=== PATIENT | male | born 1960 | race African-American/Black ===

== ENCOUNTER 2017-06-25 07:13 | Observation (INO) | payer OTHER ==
[~2017-06-25] VITALS: Ht 190.5 cm; Wt 68.9 kg
[2017-06-25] MEDS ORDERED: SOD CHLORIDE 0.9% 1,000 ML IV STA ×2 (07:35→09:25)
[2017-06-25 08:01] LABS: BASOPHIL # 0.1 10^3/ul (0.0-0.1); BASOPHILS % 0.6 % (0.0-2.0); EOSINOPHILS # 0.1 10^3/ul (0.0-0.5); EOSINOPHILS % 0.6 % (0.0-7.0); HEMATOCRIT 36.1 % (42.0-52.0); LYMPHOCYTES # 1.5 10^3/ul (0.8-2.9); LYMPHOCYTES % 15.2 % (15.0-51.0); MEAN CORPUSCULAR HEMOGLOBIN 31.6 pg (29.0-33.0); MEAN CORPUSCULAR HGB CONC 33.2 g/dl (32.0-37.0); MEAN PLATELET VOLUME 10.9 fl (7.4-10.4); MONOCYTE # 0.8 10^3/ul (0.3-0.9); MONOCYTES % 8.2 % (0.0-11.0); NEUTROPHIL # 7.2 10^3/ul (1.6-7.5); NEUTROPHILS % 74.5 % (39.0-77.0); PLATELET COUNT 120 10^3/UL (140-415); POSITIVE DIFF @See below; RED CELL DISTRIBUTION WIDTH 12.6 % (11.5-14.5); WHITE BLOOD COUNT 9.6 10^3/ul (4.8-10.8)
[2017-06-25 08:16] LABS: PROTIME 13.2 Sec (12.2-14.2)
[2017-06-25 08:17] LABS: PARTIAL THROMBOPLASTIN TIME 26.2 Sec (25.0-35.0)
[2017-06-25 08:18] LABS: ANION GAP 24 (8-16); BLOOD UREA NITROGEN 33 mg/dl (7-20); CARBON DIOXIDE 20 mmol/L (21-31); CHLORIDE 101 mmol/L (97-110); GLUCOSE 191 mg/dl (70-220); POTASSIUM 3.4 mmol/L (3.5-5.1); SODIUM 142 mmol/L (135-144)
[2017-06-25 08:24] LABS: VALPROATE < 10 ug/ml (50-100)
[2017-06-25] MEDS ORDERED: VALPROATE INJ 1,000 MG in DEXTROSE 5% 100 ML IVPB ONE (08:30)
--- NOTE | 2017-06-25 08:30 | RADRPT ---
PROCEDURE: XR Chest. CLINICAL INDICATION: Seizure TECHNIQUE: Single frontal view of the chest was obtained COMPARISON: None FINDINGS: The heart and mediastinum are within normal limits. The lungs are clear. There is no pleural effusion or pneumothorax. RPTAT: AA IMPRESSION: No acute disease. .Rodrigue Vaz MD, Date Time Electronically viewed and signed by .Rodrigue Vaz MD, on 06/25/2017 08:30 .S/
[2017-06-25 08:32] LABS: TROPONIN-I 0.068 ng/ml (0.00-0.12)
--- NOTE | 2017-06-25 08:39 | RADRPT ---
PROCEDURE: CT Brain without contrast. CLINICAL INDICATION: Seizures. History of CVA. TECHNIQUE: A CT of the brain was performed on a multidetector CT scanner utilizing axial sections from the skull base through the vertex without contrast. Images were reviewed on a high-resolution [employer] workstation. Exam CTDI = 44.03 mGy and the DLP = 720.23 mGy-cm. One or the following dose reduction techniques were used: -Automated exposure control. -Adjustment of the mA and/or KV according to patient's size. -Use of iterative reconstruction technique COMPARISON: None available FINDINGS: Mild diffuse cerebral and cerebellar atrophy is present. There is proportionate dilatation of the v entricular system and sulci in a symmetric fashion. There is prominence of the extraaxial spaces sec ondary to atrophy. There is no evidence of intracranial hemorrhage, mass effect or midline shift. N o abnormal intra-axial or extra-axial fluid collections are seen. The density of the brain is analilia l and the garvey/white matter differentiation is well preserved. Mild patchy diffuse deep white matte r microangiopathic ischemic change is seen. There is ex vacuo dual there is encephalomalacia in the left hemisphere in the deep white matter of the centrum [place], basal ganglia and left tem poral lobe with associated ex vacuo dilatation of the left lateral ventricle. This may be from a rem ote left MCA infarction. 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 A component of this is a small area of hypodensity in the right caudate nucleus with a small amount of a surrounding hyperdensity. There is a tiny punctate hyperdensity in the posterior l imb of the right internal capsule. There is a small remote lacunar infarction in the right thalamus. There is a wedge-shaped area of encephalomalacia in the right cerebellar hemisphere. Paranasal sinu ses and mastoid air cells appear aerated.. Vascular calcifications are identified. IMPRESSION: 1. Irregular hypodense areas in the centrum [place] on the left with left basal ganglia hy podensity and left temporal lobe hypodensity with ex vacuo dilatation of the left lateral ventricle indicative of remote left MCA infarction and possible postoperative change. 2. Small remote lacunar infarction in the right thalamus and right cerebellar hemisphere. 3. Small hypodense area in the right caudate nucleus with this subtle area of slight increased atte nuation along the margin with a second tiny punctate hyperdensity in the posterior limb of the right internal capsule. This is of uncertain significance. Consider MRI in further evaluation. 4. Age-related volume loss and small vessel ischemic changes. 5. Intracranial atherosclerosis. Note: A call report was made to Mayte Duke on 06/25/2017 8:37:37 AM. RPTAT: [facility] Physician Nick Date Time Electronically viewed and signed by Garrett White Physician on 06/25/2017 08:39 /
[2017-06-25 09:03] LABS: ADD UMIC YES; UR ASCORBIC ACID NEGATIVE (NEGATIVE); UR BILIRUBIN (Dip) NEGATIVE (NEGATIVE); UR BLOOD (Dip) 1+ mg/dL (NEGATIVE); UR CLARITY CLEAR (CLEAR); UR COLOR YELLOW (YELLOW); UR GLUCOSE (Dip) NEGATIVE (NEGATIVE); UR KETONES (Dip) NEGATIVE (NEGATIVE); UR LEUKOCYTE ESTERASE (Dip) TRACE Leu/ul (NEGATIVE); UR MUCUS FEW /HPF (NONE SEEN); UR NITRITE (Dip) NEGATIVE (NEGATIVE); UR RBC 3 /HPF (0-5); UR SPECIFIC GRAVITY (Dip) 1.014 (1.003-1.030); UR TOTAL PROTEIN (Dip) 3+ mg/dl (NEGATIVE); UR UROBILINOGEN (Dip) 1+ mg/dL (NEGATIVE)
[2017-06-25 09:28] VITALS: TEMP 98.8
--- NOTE | 2017-06-25 09:46 | ERD ---
ER Documentation Chief Complaint Chief Complaint seizure while at facility with no signs of trauma. aloc on arrival. HPI 56-year-old male with chronic encephalopathy with a history of seizure disorder , hypertension brought in by ambulance for seizures at his facility. Reportedly the patient is on hospice. Patient is unable to provide a history. She has had one seizure at his facility. When ambulance arrived, he was not seizing. When they put him into the ambulance, he started having a seizure again. He was medicated for this and the seizure resolved. ROS Unable to obtain given the patient's encephalopathy Medications Home Meds Unable to Obtain Active Prescriptions or Reported Meds Allergies Allergies: Coded Allergies: Unknown: Unable to obtain (Unverified , 06/25/17) PMhx/Soc History of Surgery: Yes History of Surgery: No Anesthesia Reaction: No Hx Neurological Disorder: Yes (History of CVA with craniectomy, seizure disorder) Hx Respiratory Disorders: No Hx Cardiac Disorders: Yes (Hypertension) Hx Psychiatric Problems: Yes Hx Miscellaneous Medical Probl: No Smoking Status: Unknown if ever smoked FmHx Family History: other (unable to obtain) Physical Exam Vitals Vital Signs Date Time Temp Pulse Resp B/P Pulse Ox O2 Delivery O2 Flow Rate FiO2 06/25/17 11:24 108 20 104/63 99 Room Air 06/25/17 09:28 98.8 102 21 107/69 98 Room Air 2.0 Nasal Cannula 06/25/17 07:29 98.8 130 22 139/98 98 Physical Exam Const: laying in gurney, unresponsive, no apparent distress, nontoxic Head: Atraumatic Eyes: Normal Conjunctiva, PERRLA ENT: Normal External Ears, Nose and Mouth. Dry mucous membranes Neck: No swelling, full passive ROM Resp: Clear to auscultation bilaterally, but shallow respirations on exam , so exam limited Cardio: tachycardic, regular rhythm, no murmurs Abd: Ex lap scar noted. Soft, non distended. Normal bowel sounds Skin: No petechiae or rashes Back: no trauma Ext: No cyanosis, or edema Neur: Somnolent, arousable, does not track with eyes, withdraws to pain on left side, contractures of RUE and minimal response to paniful stimuli in RLE with + Babinski. Result Diagram: 06/25/1745 06/25/17744 Results 24 hrs Laboratory Tests Test 06/25/17 07:45 06/25/17 08:01 06/25/17 08:45 White Blood Count 9.610^3/ul Red Blood Count 3.8010^6/ul Hemoglobin 12.0g/dl Hematocrit 36.1% Mean Corpuscular Volume 95.0fl Mean Corpuscular Hemoglobin 31.6pg Mean Corpuscular Hemoglobin Concent 33.2g/dl Red Cell Distribution Width 12.6% Platelet Count 96572^3/UL Mean Platelet Volume 10.9fl Neutrophils % 74.5% Lymphocytes % 15.2% Monocytes % 8.2% Eosinophils % 0.6% Basophils % 0.6% Nucleated Red Blood Cells % 0.0/100WBC Neutrophils # 7.210^3/ul Lymphocytes # 1.510^3/ul Monocytes # 0.810^3/ul Eosinophils # 0.110^3/ul Basophils # 0.110^3/ul Nucleated Red Blood Cells # 0.010^3/ul Prothrombin Time 13.2Sec Prothrombin Time Ratio 1.0 INR International Normalized Ratio 1.00 Activated Partial Thromboplast Time 26.2Sec Sodium Level 142mmol/L Potassium Level 3.4mmol/L Chloride Level 101mmol/L Carbon Dioxide Level 20mmol/L Anion Gap 24 Blood Urea Nitrogen 33mg/dl Creatinine 2.40mg/dl Glucose Level 191mg/dl Calcium Level 9.0mg/dl Troponin I 0.068ng/ml Valproic Acid (Depakene) Level < 10ug/ml Bedside Glucose 154mg/dL Urine Color YELLOW Urine Clarity CLEAR Urine pH 6.0 Urine Specific [place] 1.014 Urine Ketones NEGATIVEmg/dL Urine Nitrite NEGATIVEmg/dL Urine Bilirubin NEGATIVEmg/dL Urine Urobilinogen 1+mg/dL Urine Leukocyte Esterase TRACELeu/ul Urine Microscopic RBC 3/HPF Urine Microscopic WBC 11/HPF Urine Mucus FEW/HPF Urine Hemoglobin 1+mg/dL Urine Glucose NEGATIVEmg/dL Urine Total Protein 3+mg/dl Current Medications Medications (Trade) Dose Ordered Sig/Bruno Route PRN Reason Start Time Stop Time Status Last Admin Dose Admin Sodium Chloride 1,000 ml @ 1,000 mls/hr Q1H STAT IV 06/25/17 07:35 06/25/17 08:34 DC 06/25/17 07:35 Valproate Sodium 1000 mg/Dextrose 110 ml @ 110 mls/hr ONCE ONCE IVPB 06/25/17 08:30 06/25/17 09:29 DC 06/25/17 08:59 Sodium Chloride (NS) 1,000 ml @ 1,000 mls/hr Q1H STAT IV 06/25/17 09:25 06/25/17 10:24 DC 06/25/17 11:40 Labetalol HCl (Labetalol) 20 mg ONCE ONCE IV 06/25/17 14:00 06/25/17 14:01 Procedures/MDM Labs CBC: no anemia or evidence of infection, thrombocytopenia CMP: Acute versus chronic kidney disease with elevated BUN and creatinine, mild hypokalemia. Troponin within normal limits Valproate level low, subtherapeutic UA: no definite evidence of infection, urine culture sent and pending EKG #1: Rate/Rhythm: Sinus Tachycardia 132 QRS, ST, T-waves: Specific ST/T-wave abnormality, no changes consistent w/ acute ischemia Impression: Sinus tachycardia, no evidence of ischemia or arrhythmia EKG #2: Rate/Rhythm: Sinus Tachycardia 114 QRS, ST, T-waves: Specific ST/T-wave abnormality, No changes consistent w/ acute ischemia Impression: Sinus tachycardia, no evidence of ischemia or arrhythmia Imaging CT head IMPRESSION: 1. Irregular hypodense areas in the centrum [place] on the left with left basal ganglia hypodensity and left temporal lobe hypodensity with ex vacuo dilatation of the left lateral ventricle indicative of remote left MCA infarction and possible postoperative change. 2. Small remote lacunar infarction in the right thalamus and right cerebellar hemisphere. 3. Small hypodense area in the right caudate nucleus with this subtle area of slight increased attenuation along the margin with a second tiny punctate hyperdensity in the posterior limb of the right internal capsule. This is of uncertain significance. Consider MRI in further evaluation. 4. Age-related volume loss and small vessel ischemic changes. 5. Intracranial atherosclerosis. Note: A call report was made to Olaf Duke on 06/25/2017 8:37:37 AM. Garrett White, Physician Date Time Electronically viewed and signed by Garrett White Physician on 06/25/2017 08: 39 Chest x-ray IMPRESSION: No acute disease. .Rodrigue Vaz MD, Date Time Electronically viewed and signed by .Rodrigue Vaz MD, on 06/25/2017 08: 30 MDM Patient is presenting with 2 seizures prior to arrival. Vitals are notable for tachycardia here. He appears dehydrated on my exam. Labs are consistent with acute versus chronic kidney disease, thrombocytopenia, without evidence of UTI. His valproate level was low, not therapeutic. A 1 g IV dose of valproic acid was given. Patient was placed on the monitors. He had no further seizure-like activity. His tachycardia improved with 2 L of IV fluids. At this time I have a low suspicion for sepsis. I suspect this vital sign abnormalities are likely due to dehydration. Also noted to have a prolonged QTC on his EKG, of unknown chronicity. I do not believe the patient is stable for discharge back to his facility and will require observation. We spoke with the patient's insurance company, and he will be transferred to another hospital. at this time, he is stable for transfer. Of note, I spoke with the patient's brother, Reza Aburto, who states the patient is full code and should not be on hospice. Transferred to [facility]. Departure Diagnosis: Primary Impression: Recurrent seizures Additional Impressions: Seizure secondary to subtherapeutic anticonvulsant medication BUCK (acute kidney injury) Encephalopathy History of stroke with residual effects Prolonged Q-T interval on ECG Condition: Serious EKOLAF COLEMAN MD Jun 25, 2017 09:42
[2017-06-25] MEDS ORDERED: LABETALOL HCL 20MG INJ IV ONE ×2 (14:00→20:30)
[2017-06-25] MEDS ORDERED: ACETAMINOPHEN 325 MG TAB PO PRN (15:30)
[2017-06-25] MEDS ORDERED: ONDANSETRON 4 MG INJ IV PRN ×2 (15:30→16:30)
[2017-06-25] MEDS ORDERED: hydrALAzine 20 MG INJ IV ONE (15:30)
[2017-06-25] MEDS ORDERED: hydrALAzine 20 MG INJ IV PRN (16:00)
[2017-06-25] MEDS ORDERED: POTASSIUM CHLORIDE 250 ML IVPB ONE (16:30)
[2017-06-25] MEDS ORDERED: morphine 2 MG INJ IV PRN (16:30)
[2017-06-25] MEDS ORDERED: NACL 0.9% 3 ML SYG IV SCH (16:30)
[2017-06-25] MEDS ORDERED: LORAZEPAM 2 MG INJ IV PRN ×3 (16:30)
--- NOTE | 2017-06-25 16:33 | HP ---
Date/Time of Note Date/Time of Note DATE: 06/25/17 TIME: 16:25 Assessment/Plan VTE Prophylaxis VTE Prophylaxis Intervention: SCD's Assessment/Plan Chief Complaint/Hosp Course Patient is a 56-year-old -Greek male with a past medical history significant for epilepsy, left MCA stroke status post craniectomy, supposedly in hospice, however patient's brother when contacted by ED staff states patient should be full resuscitation. Assessment and plan Breakthrough seizure Epilepsy Acute on chronic encephalopathy, likely secondary to seizure Acute kidney injury versus chronic kidney disease Sepsis, tachycardia and respiratory rate with questionable UTI source Hypertensive emergency Anemia, likely chronic Hypokalemia, Metabolic acidosis, questionable lactic acid elevation Left basal ganglia hypodensity on CT Remote lacunar infarction on CT -Patient likely had seizure secondary to medical noncompliance, Depakote level undetectable, patient was supposed to be on Depakote per significant med rec that was very lacking, no dosage was recorded. -Patient loaded with Depakote in the ED, will continue maintenance dose IV -Swallow study as patient is nonverbal at this time -Empiric antibiotics given questionable UTI, blood cultures and sepsis protocol , continue fluids -Patient was supposed to be transferred but blood pressure was too high, will stabilize and transferred to [facility] when able, patient's workup will be completed at [facility] -Recommend MRI and neurology consultation at [facility] as well as possible nephrology consultation if AK I does not resolve. -Follow-up lactic acid, continue IV fluids -Continue home meds as able -As needed medications for hypertension, start home meds when able -Seizure precautions -Labs drawn for tomorrow Problems: HPI/ROS Admit Date/Time Admit Date/Time Hx of Present Illness Patient is a 56-year-old -Greek male with past medical history significant for left MCA CVA and status post craniectomy and chronic encephalopathy from a longterm with also with a seizure history who presents with a breakthrough seizure witnessed at the facility and by EMT. Upon arrival to the ED, patient has not exhibited any seizure-like activity, however patient is not at supposed baseline which is answering occasional questions. Patient is alert and does follow occasional commands when prompted however appears he is chronically contracted on his right upper extremity and a spastic activity on his right lower extremity when dorsiflexed. Patient is not to be in any acute distress and was originally planned for transfer to [facility], due to insurance reasons, however patient's blood pressure reached levels of hypertensive emergency and was will be stabilized at [facility] before transfer. There is no additional history available as there is no HPI available from the facility. Should be of note that although patient medication list shows Depakote, no dosage nor schedule is actually available. Patient's Depakote level is nonexistent upon arrival. PMH: Left MCA CVA status post craniectomy, unknown date or complications or reason, hypertension, mood disorder, chronic encephalopathy PSH: Left craniectomy unknown date, abdominal surgery unknown cause or date Social: Unknown Meds: Per chart, no dosing is available, famotidine, Depakote, benazepril, Coreg , risperidone, nifedipine. PMH/Family/Social Social History Smoking Status: Unknown if ever smoked Exam/Review of Systems Vital Signs Vitals Vital Signs Date Time Temp Pulse Resp B/P Pulse Ox O2 Delivery O2 Flow Rate FiO2 06/25/17 15:00 93 20 197/139 99 Room Air 06/25/17 09:28 98.8 2.0 Exam Exam Physical exam General: Patient is laying in bed in no acute distress, easily aroused, but non- verbal Mentation: Patient is alert , but non-verbal, tracks Head: Normocephalic atraumatic Eyes: EOMI, pupils reactive to light but sluggish Neck: Supple, nontender, midline Respiratory: Clear to auscultation bilaterally Cardiovascular: regular rate, no obvious murmurs Gastrointestinal: non-tender to palpation, bowel sounds heard. Neurological: Moves all extremities spontaneously Skin: midline abdominal vertical incisional scar Labs Result Diagram: 06/25/17 0745 06/25/17 0745 Medications Medications Current Medications Labetalol HCl (Labetalol) 10 mg Q4 PRN IV SBP>160; Start 06/25/17 at 16:00; Status UNV Hydralazine HCl 10 mg 10 mg Q4H PRN IV SBP> 160; Start 06/25/17 at 16:00; Status UNV Potassium Chloride 250 ml @ 62.5 mls/hr ONCE ONCE IVPB ; Start 06/25/17 at 16: 30; Stop 06/25/17 at 20:29; Status UNV Sodium Chloride (NS) 1,000 ml @ 100 mls/hr Q10H IV ; Start 06/25/17 at 16:12; Status UNV Morphine Sulfate (morphine) 2 mg Q4H PRN IV PAIN LEVEL 7-10; Start 06/25/17 at 16:30; Status UNV Famotidine 20 mg 20 mg Q12 IV ; Start 06/25/17 at 21:00; Status UNV Valproate Sodium/ Sodium Chloride (Depacon/NS) 55 ml @ 55 mls/hr Q12 IVPB ; Start 06/25/17 at 21:00; Status UNV Lorazepam (Ativan) 0.5 mg Q6H PRN IV agitation; Start 06/25/17 at 16:30; Status UNV Lorazepam (Ativan) 2 mg Q10MIN PRN IV seizure; Start 06/25/17 at 16:30; Status UNV TAINA BARBER Jun 25, 2017 16:33
[2017-06-25] MEDS ORDERED: CEFTRIAXONE 1 GM/50 ML (PMX) 50 ML IVPB SCH (17:00)
[2017-06-25 17:25] VITALS: BP 161/97; PULSE 107; RESP 18
[2017-06-25 17:28] VITALS: Ht 190.5 cm; Wt 68.9 kg
[2017-06-25] MEDS: SOD CHLORIDE 0.9% 1,000 ML IV SCH (17:34)
[2017-06-25] MEDS ORDERED: VALPROATE INJ 500 MG in SOD CHLORIDE 0.9% 50 ML IVPB SCH (18:00)
[2017-06-25 20:11] VITALS: BP 202/124; RESP 18
[2017-06-25 20:23] VITALS: PULSE 108
[2017-06-25] MEDS ORDERED: FAMOTIDINE 20 MG INJ IV SCH (21:00)
[2017-06-25] MEDS: VALPROATE INJ 500 MG in DEXTROSE 5% 50 ML IVPB SCH (21:24)
[2017-06-26] VITALS (14 sets, daily range): BP systolic 131–215; BP diastolic 66–133; PULSE 84–110; RESP 18–20
[2017-06-26] MEDS ORDERED: hydrALAzine 20 MG INJ IV ONE (00:30)
[2017-06-26] MEDS: SOD CHLORIDE 0.9% 1,000 ML IV SCH (02:12)
[2017-06-26] MEDS: LABETALOL HCL 20MG INJ IV PRN ×2 (05:16→14:52)
[2017-06-26 08:11] LABS: ALBUMIN 2.9 g/dl (3.3-4.9); ALBUMIN/GLOBULIN RATIO 0.82; BILIRUBIN,INDIRECT 0.2 mg/dl (0-1.1); BILIRUBIN,TOTAL 0.2 mg/dl (0.2-1.3); CALCIUM 8.6 mg/dl (8.4-10.2); CHOL/HDL RATIO 3.3 RATIO; CREATININE 2.03 mg/dl (0.61-1.24); POTASSIUM 4.2 mmol/L (3.5-5.1); TOTAL PROTEIN 6.4 g/dl (6.1-8.1)
[2017-06-26 08:13] LABS: ABNORMAL IP MESSAGE 1; BASOPHILS % 0.2 % (0.0-2.0); EOSINOPHILS % 0.1 % (0.0-7.0); HEMATOCRIT 29.3 % (42.0-52.0); LYMPHOCYTES # 1.3 10^3/ul (0.8-2.9); LYMPHOCYTES % 11.1 % (15.0-51.0); MEAN CORPUSCULAR HEMOGLOBIN 33.1 pg (29.0-33.0); MEAN CORPUSCULAR HGB CONC 34.1 g/dl (32.0-37.0); MONOCYTE # 0.8 10^3/ul (0.3-0.9); NEUTROPHIL # 9.8 10^3/ul (1.6-7.5); NEUTROPHILS % 80.9 % (39.0-77.0); PLATELET COUNT 99 10^3/UL (140-415); POSITIVE DIFF @See below; RED BLOOD COUNT 3.02 10^6/ul (4.70-6.10); RED CELL DISTRIBUTION WIDTH 12.9 % (11.5-14.5); WHITE BLOOD COUNT 12.1 10^3/ul (4.8-10.8)
[2017-06-26 08:42] LABS: THYROID STIMULATING HORMONE 1.09 MIU/L (0.465-4.680)
[2017-06-26] MEDS: VALPROATE INJ 500 MG in DEXTROSE 5% 50 ML IVPB SCH (08:50)
[2017-06-26] MEDS ORDERED: INFLUENZA VIRUS VACCINE 0.5 ML (DISPENSING) IM* ONE (09:00)
[2017-06-26] MEDS ORDERED: CLONIDINE 0.3 MG/24 HR PATCH TRANSDERM SCH (09:30)
[2017-06-26] MEDS ORDERED: BENA20TA48 PO (10:02)
[2017-06-26] MEDS ORDERED: DIVA250T4 PO (10:02)
[2017-06-26] MEDS ORDERED: CARV6.2579 PO (10:02)
[2017-06-26] MEDS ORDERED: FAMO20TA18 PO (10:02)
[2017-06-26] MEDS ORDERED: RISP1TAB3 PO (10:02)
[2017-06-26] MEDS ORDERED: NIFE60TA7 PO (10:02)
[2017-06-26] MEDS ORDERED: AMLODIPINE 10 MG TAB PO ONE (13:30)
--- NOTE | 2017-06-26 13:38 | DS ---
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 Upon arrival to the ED, patient has not exhibited any seizure-like activity, however patient is not at supposed baseline which is answering occasional questions. Patient is alert and does follow occasional commands when prompted however appears he is chronically contracted on his right upper extremity and a spastic activity on his right lower extremity when dorsiflexed. Patient is not to be in any acute distress and was originally planned for transfer to [facility], due to insurance reasons, however patient's blood pressure reached levels of hypertensive emergency and was will be stabilized at [facility] before transfer. There is no additional history available as there is no HPI available from the facility. Should be of note that although patient medication list shows Depakote, no dosage nor schedule is actually available. Patient's Depakote level is nonexistent upon arrival. PMH: Left MCA CVA status post craniectomy, unknown date or complications or reason, hypertension, mood disorder, chronic encephalopathy PSH: Left craniectomy unknown date, abdominal surgery unknown cause or date Social: Unknown Meds: Per chart, no dosing is available, famotidine, Depakote, benazepril, Coreg , risperidone, nifedipine. Hospital Course Patient is a 56-year-old -[place] male with a past medical history significant for epilepsy, left MCA stroke status post craniectomy, supposedly in hospice, however patient's brother when contacted by ED staff states patient should be full resuscitation. Assessment and plan Breakthrough seizure Epilepsy Acute on chronic encephalopathy, likely secondary to seizure Acute kidney injury versus chronic kidney disease Sepsis, tachycardia and respiratory rate with questionable UTI source Hypertensive emergency Anemia, likely chronic Hypokalemia, Metabolic acidosis, questionable lactic acid elevation Left basal ganglia hypodensity on CT Remote lacunar infarction on CT -Patient likely had seizure secondary to medical noncompliance, Depakote level undetectable, patient was supposed to be on Depakote per significant med rec that was very lacking, no dosage was recorded. -Patient loaded with Depakote in the ED, will continue maintenance dose IV -Swallow study as patient is nonverbal at this time -Empiric antibiotics given questionable UTI, blood cultures and sepsis protocol , continue fluids -Patient was supposed to be transferred but blood pressure was too high, will stabilize and transferred to [facility] when able, patient's workup will be completed at [facility] -Recommend MRI and neurology consultation at [facility] as well as possible nephrology consultation if AK I does not resolve. -Follow-up lactic acid, continue IV fluids -Continue home meds as able -As needed medications for hypertension, start home meds when able -Seizure precautions -Labs drawn for tomorrow Home Meds Reported Medications Nifedipine* (Nifedipine ER*) 60 Mg Tablet.sa, 60 MG PO DAILY, TAB.SA 06/26/17 Risperidone* (Risperidone*) 1 Mg Tablet, 1 MG PO BID, TAB 06/26/17 Carvedilol* (Carvedilol*) 6.25 Mg Tablet, 6.25 MG PO BID, #60 TAB 06/26/17 Benazepril Hcl* (Benazepril Hcl*) 20 Mg Tablet, 20 MG PO BID, #60 TAB 06/26/17 Divalproex Sodium* (Divalproex Sodium*) 250 Mg Tablet.dr, 250 MG PO BID WITH MEALS, #90 TAB 06/26/17 Famotidine* (Famotidine*) 20 Mg Tablet, 20 MG PO DAILY, #30 TAB 06/26/17 Follow-up Plan Transfer diagnosis Breakthrough seizure Epilepsy Acute on chronic encephalopathy, likely secondary to seizure Acute kidney injury versus chronic kidney disease Sepsis, tachycardia and respiratory rate with questionable UTI source Hypertensive emergency Anemia, likely chronic Hypokalemia, Metabolic acidosis, questionable lactic acid elevation Left basal ganglia hypodensity on CT Remote lacunar infarction on CT Patient is a 56-year-old -[place] male with a past medical history significant for epilepsy, left MCA stroke, status post craniectomy, unknown date of operation who presents from assisted after witnessed seizure by both assisted staff and EMT. On arrival patient was not exhibiting seizures and was altered with an elevated lactic acid and was deemed unstable for transfer due to hypertensive emergency. Patient was monitored overnight placed on as needed medications for blood pressure and in the a.m. patient's mental status improved significantly. It appears patient's mental status consists of being able to monitor occasional words and nodding his head. Patient appears baseline at this time although he does not has had it is not to the appropriate questions. Patient does not appear in any acute distress but would warrant further neurological evaluation. CT scan of the head upon arrival did show signs of previous left MCA infarct however did show signs of lacunar infarction, also likely chronic, however MRI should be a strong consideration as well as neurology consultation. Patient seizure was likely caused by medication noncompliance as patient's Depakote level was undetectable on arrival, this morning it was within limits of therapeutic value will be continued on the current IV medication. Patient's blood pressure medication originally did not have doses, however doses were provided the next day, however noting that patient was likely not taking his Depakote appropriately at the assisted, clonidine patch was added for blood pressure control and other antihypertensives should be added as needed keeping in mind patient may refuse or not swallow his medications. Patient also had an acute kidney injury which improved with just fluids at a creatinine of 2, however nephrology consultation should be a consideration. Patient's lactic acid had returned to normal the next morning. Patient's dose of Depakote was noted to be 250 mg twice daily at the assisted, however currently patient is on 500 mg IV Depakote at therapeutic values. Patient is also started on ceftriaxone given questionable UTI sepsis, however no blood pressure issues except for hypertension and no definitive urinalysis except for a urinalysis with trace leuk esterase. Continue antibiotics as needed. Also of note patient was supposedly on hospice at the nursing home facility however when ED please call to brother, patient's brother stated the patient should not be on hospice and is full code. PROCEDURE: CT Brain without contrast. CLINICAL INDICATION: Seizures. History of CVA. TECHNIQUE: A CT of the brain was performed on a multidetector CT scanner utilizing axial sections from the skull base through the vertex without contrast. Images were reviewed on a high-resolution PACS workstation. Exam CTDI = 44.03 mGy and the DLP = 720.23 mGy-cm. One or the following dose reduction techniques were used: -Automated exposure control. -Adjustment of the mA and/or KV according to patient's size. -Use of iterative reconstruction technique COMPARISON: None available FINDINGS: Mild diffuse cerebral and cerebellar atrophy is present. There is proportionate dilatation of the ventricular system and sulci in a symmetric fashion. There is prominence of the extraaxial spaces secondary to atrophy. There is no evidence of intracranial hemorrhage, mass effect or midline shift. No abnormal intra-axial or extra-axial fluid collections are seen. The density of the brain is normal and the garvey/white matter differentiation is well preserved. Mild patchy diffuse deep white matter microangiopathic ischemic change is seen. There is ex vacuo dual there is encephalomalacia in the left hemisphere in the deep white matter of the centrum [place], basal ganglia and left temporal lobe with associated ex vacuo dilatation of the left lateral ventricle. This may be from a remote left MCA infarction. However, there is also postoperative change from previous left temporal craniotomy. A component of this is a small area of hypodensity in the right caudate nucleus with a small amount of a surrounding hyperdensity. There is a tiny punctate hyperdensity in the posterior limb of the right internal capsule. There is a small remote lacunar infarction in the right thalamus. There is a wedge-shaped area of encephalomalacia in the right cerebellar hemisphere. Paranasal sinuses and mastoid air cells appear aerated.. Vascular calcifications are identified. IMPRESSION: 1. Irregular hypodense areas in the centrum [place] valley on the left with left basal ganglia hypodensity and left temporal lobe hypodensity with ex vacuo dilatation of the left lateral ventricle indicative of remote left MCA infarction and possible postoperative change. 2. Small remote lacunar infarction in the right thalamus and right cerebellar hemisphere. 3. Small hypodense area in the right caudate nucleus with this subtle area of slight increased attenuation along the margin with a second tiny punctate hyperdensity in the posterior limb of the right internal capsule. This is of uncertain significance. Consider MRI in further evaluation. 4. Age-related volume loss and small vessel ischemic changes. 5. Intracranial atherosclerosis. Primary Care Provider Not On Staff Doctor Time spent on discharge: > 30 minutes Pending Labs Laboratory Tests Test 06/25/17 17:50 06/26/17 07:07 06/26/17 07:08 06/26/17 08:00 Lactic Acid Level 2.3mmol/L (0.5-2.0) 1.3mmol/L (0.5-2.0) White Blood Count 12.110^3/ul (4.8-10.8) Red Blood Count 3.0210^6/ul (4.70-6.10) Hemoglobin 10.0g/dl (14.0-18.0) Hematocrit 29.3% (42.0-52.0) Mean Corpuscular Volume 97.0fl (82.0-101.0) Mean Corpuscular Hemoglobin 33.1pg (29.0-33.0) Mean Corpuscular Hemoglobin Concent 34.1g/dl (32.0-37.0) Red Cell Distribution Width 12.9% (11.5-14.5) Platelet Count 9910^3/UL (140-415) Mean Platelet Volume 12.0fl (7.4-10.4) Neutrophils % 80.9% (39.0-77.0) Lymphocytes % 11.1% (15.0-51.0) Monocytes % 7.0% (0.0-11.0) Eosinophils % 0.1% (0.0-7.0) Basophils % 0.2% (0.0-2.0) Nucleated Red Blood Cells % 0.0/100WBC (0.0-0.0) Neutrophils # 9.810^3/ul (1.6-7.5) Lymphocytes # 1.310^3/ul (0.8-2.9) Monocytes # 0.810^3/ul (0.3-0.9) Eosinophils # 0.010^3/ul (0.0-0.5) Basophils # 0.010^3/ul (0.0-0.1) Nucleated Red Blood Cells # 0.010^3/ul (0.0-0.0) Valproic Acid (Depakene) Level 58ug/ml (50-100) Sodium Level 145mmol/L (135-144) Potassium Level 4.2mmol/L (3.5-5.1) Chloride Level 112mmol/L (97-110) Carbon Dioxide Level 26mmol/L (21-31) Anion Gap 11 (8-16) Blood Urea Nitrogen 31mg/dl (7-20) Creatinine 2.03mg/dl (0.61-1.24) Glucose Level 109mg/dl (70-220) Hemoglobin A1c 4.5% (0-5.9) Calcium Level 8.6mg/dl (8.4-10.2) Total Bilirubin 0.2mg/dl (0.2-1.3) Direct Bilirubin 0.00mg/dl (0.00-0.20) Indirect Bilirubin 0.2mg/dl (0-1.1) Aspartate Amino Transf (AST/SGOT) 33IU/L (15-46) Alanine Aminotransferase (ALT/SGPT) 42IU/L (13-69) Alkaline Phosphatase 54IU/L (42-121) Total Protein 6.4g/dl (6.1-8.1) Albumin 2.9g/dl (3.3-4.9) Globulin 3.50g/dl (1.3-3.2) Albumin/Globulin Ratio 0.82 Triglycerides Level 107mg/dl (0-149) Cholesterol Level 171mg/dl (100-200) LDL Cholesterol, Calculated 99mg/dl HDL Cholesterol 51mg/dl (28-71) Cholesterol/HDL Ratio 3.3RATIO Thyroid Stimulating Hormone (TSH) 1.090MIU/L (0.465-4.680) TAINA BARBER Jun 26, 2017 13:38
[2017-06-26] MEDS ORDERED: CLON1PAT3 TRANSDERM (13:40)
== END 2017-06-26 16:00 | disposition short-term general hospital (02) ==
LOC: E/R 07:13 → MS4 15:04
PROVIDERS: ADMIT Internal Medicine; ATTEND Internal Medicine
DX: G40.909 Epilepsy, unspecified, not intractable, without status epilepticus (principal); G93.40 Encephalopathy, unspecified; R00.0 Tachycardia, unspecified; I10 Essential (primary) hypertension; D64.9 Anemia, unspecified; E87.6 Hypokalemia; E87.2 Acidosis; G25.9 Extrapyramidal and movement disorder, unspecified; I67.2 Cerebral atherosclerosis; Z86.73 Personal history of transient ischemic attack (TIA), and cerebral infarction without residual deficits
CPT/HCPCS: 36415; 70450; 71010; 80048; 80053; 80061; 80164; 81001; 82962; 83036; 83605; 84443; 84484; 85025; 85610; 85730; 87040; 90686; 92610; 93005; 96374; 96375; J0360; J0696; J3480; J7030; Z7500; Z7502; Z7610; G0378

== ENCOUNTER 2017-07-01 13:59 | Emergency (ER) | payer OTHER ==
[~2017-07-01] VITALS: Ht 160 cm; Wt 78.0 kg
[~2017-07-01 13:59] MED LIST: CLON1PAT3 TRANSDERM; FAMO20TA18 PO; NIFE60TA7 PO; RISP1TAB3 PO
[2017-07-01 14:12] VITALS: Ht 160 cm; Wt 78.0 kg
[2017-07-01] MEDS ORDERED: SOD CHLORIDE 0.9% 1,000 ML IV STA (14:27)
--- NOTE | 2017-07-01 15:08 | RADRPT ---
PROCEDURE: CHEST X-RAY CLINICAL INDICATION: Altered mental status TECHNIQUE: One-view semi erect COMPARISON: None FINDINGS: Heart size and pulmonary vascularity appears unremarkable. No acute infiltrates, edema, pneumothorax noted. IMPRESSION: No acute process noted radiographically RPTAT: AAOO Physician Jacobo Date Time Electronically viewed and signed by Benji Estrada Physician on 07/01/2017 15:08 MB/
[2017-07-01 15:34] LABS: ADD UMIC YES; UR ASCORBIC ACID NEGATIVE (NEGATIVE); UR BILIRUBIN (Dip) NEGATIVE (NEGATIVE); UR BLOOD (Dip) NEGATIVE (NEGATIVE); UR CLARITY SLIGHTLY CLOUDY (CLEAR); UR COLOR YELLOW (YELLOW); UR GLUCOSE (Dip) NEGATIVE (NEGATIVE); UR KETONES (Dip) NEGATIVE (NEGATIVE); UR LEUKOCYTE ESTERASE (Dip) TRACE Leu/ul (NEGATIVE); UR MUCUS FEW /HPF (NONE SEEN); UR NITRITE (Dip) NEGATIVE (NEGATIVE); UR RBC 3 /HPF (0-5); UR SPECIFIC GRAVITY (Dip) 1.013 (1.003-1.030); UR SQUAMOUS EPITHELIAL CELL FEW /HPF (FEW); UR TOTAL PROTEIN (Dip) 2+ mg/dl (NEGATIVE); UR UROBILINOGEN (Dip) NEGATIVE (NEGATIVE)
[2017-07-01 15:45] LABS: ANION GAP 14 (8-16)
[2017-07-01 15:46] LABS: ACETAMINOPHEN < 10.0 ug/ml (10.0-30.0); ALANINE AMINOTRANSFERASE 38 IU/L (13-69); ALBUMIN 3.4 g/dl (3.3-4.9); ALBUMIN/GLOBULIN RATIO 1.09; ALKALINE PHOSPHATASE 58 IU/L (42-121); ASPARTATE AMINO TRANSFERASE 35 IU/L (15-46); BILIRUBIN,INDIRECT 0.1 mg/dl (0-1.1); BILIRUBIN,TOTAL 0.1 mg/dl (0.2-1.3); BLOOD UREA NITROGEN 44 mg/dl (7-20); CALCIUM 8.7 mg/dl (8.4-10.2); CARBON DIOXIDE 29 mmol/L (21-31); CHLORIDE 107 mmol/L (97-110); CREATININE 2.37 mg/dl (0.61-1.24); ETHANOL < 10.0 mg/dl; GLUCOSE 95 mg/dl (70-220); SALICYLATE < 1.0 mg/dl (5.0-30.0); SODIUM 146 mmol/L (135-144); TOTAL PROTEIN 6.5 g/dl (6.1-8.1)
[2017-07-01 15:49] LABS: BASOPHILS % 0.4 % (0.0-2.0); EOSINOPHILS # 0.5 10^3/ul (0.0-0.5); EOSINOPHILS % 5.2 % (0.0-7.0); HEMATOCRIT 31.9 % (42.0-52.0); HEMOGLOBIN 10.2 g/dl (14.0-18.0); LYMPHOCYTES # 1.9 10^3/ul (0.8-2.9); LYMPHOCYTES % 21.7 % (15.0-51.0); MEAN CORPUSCULAR HEMOGLOBIN 31.5 pg (29.0-33.0); MEAN CORPUSCULAR VOLUME 98.5 fl (82.0-101.0); MEAN PLATELET VOLUME 9.8 fl (7.4-10.4); MONOCYTE # 0.8 10^3/ul (0.3-0.9); MONOCYTES % 8.5 % (0.0-11.0); NEUTROPHIL # 5.6 10^3/ul (1.6-7.5); NEUTROPHILS % 62.5 % (39.0-77.0); PLATELET COUNT 184 10^3/UL (140-415); RED BLOOD COUNT 3.24 10^6/ul (4.70-6.10); RED CELL DISTRIBUTION WIDTH 12.9 % (11.5-14.5); WHITE BLOOD COUNT 8.9 10^3/ul (4.8-10.8)
[2017-07-01 15:54] LABS: TROPONIN-I 0.062 ng/ml (0.00-0.12)
--- NOTE | 2017-07-01 16:03 | RADRPT ---
PROCEDURE: CT Brain without contrast. CLINICAL INDICATION: Altered Mental Status TECHNIQUE: A multiplanar CT of the brain was performed on a CT scanner utilizing axial imaging fro m the skull base through the vertex without IV contrast. The CTDIvol is 44.03 mGy and the DLP is 72 0.23 mGycm. One or more of the following dose reduction techniques were utilized: Automated exposu re control, adjustment of the mA and/or kV according to patient size, use of iterative reconstructio n technique. COMPARISON: CT brain 06/25/2017. FINDINGS: Left frontotemporal craniotomy. No evidence of intracranial hemorrhage or abnormal extra-axial fluid collection. Encephalomalacia involving the left frontal operculum, anterior temporal lobe, mcknight r adiata, basal ganglia, and thalamus with atrophy of the left cerebral peduncle compatible with remot e left MCA territory ischemic infarct/sequelae of postoperative change and wallerian degeneration. S mall remote right cerebellar hemisphere ischemic infarct. Stable remote lacunar infarct in the right basal ganglia. Extensive confluent and diffuse hyperinten sity of the periventricular and subcortical white matter left greater than right compatible sequelae of chronic microvascular ischemic changes and gliosis. Ex vacuo dilatation of the left lateral vent ricle. Mild cerebral volume loss. Atherosclerotic calcification of the internal carotid and vertebral arteries. The basal cisterns, posterior fossa contents, brainstem, craniocervical junction, orbits, pituitary axis, paranasal sinuses, mastoid air cells, and calvarium are unremarkable. IMPRESSION: 1. No intracranial hemorrhage or acute intracranial abnormality. No interval change compared to 02/2017. 2. Left frontotemporal craniotomy with underlying remote MCA territory infarct and/or postoperative change. MRI may be considered to exclude the possibility of superimposed acute ischemic infarction given the extent of chronic ischemic changes. 3. Remote lacunar infarct in the right basal ganglia and remote cerebellar hemisphere infarct. 4. Extensive chronic microvascular ischemic changes and/or gliosis. RPTAT:AAJJ Physician Lavell Date Time Electronically viewed and signed by Physician Lavell on 07/01/2017 16:03 LILA/
[2017-07-01 16:09] LABS: BARBITURATES Negative (NEGATIVE); BENZODIAZEPINES Negative (NEGATIVE); CANNABINOIDS Negative (NEGATIVE); COCAINE Negative (NEGATIVE); OPIATES Negative (NEGATIVE)
[2017-07-01] MEDS ORDERED: LEVETIRACETAM 1000 MG (PMX) 100 ML IVPB ONE (17:00)
[2017-07-01 18:36] VITALS: BP 157/98; PULSE 102; RESP 20; TEMP 98
--- NOTE | 2017-07-01 21:10 | ERD ---
ER Documentation Chief Complaint Chief Complaint more altered than normal HPI 56-year-old male was sent from his facility for being more altered than normal. He has baseline dementia but was stated that he is more altered than normal. No associated symptoms. No fevers, no respiratory distress, no cough. She himself is unable to provide any history. Does have paper with him with a prior visit to this facility on June [address] with multiple chronic cranial abnormalities that could explain his severe dementia condition. ROS All systems reviewed and are negative except as per history of present illness. Medications Home Meds Active Scripts Clonidine Patch (CLONIDINE PATCH) 0.3 Mg/24 Hr Patch, 1 PATCH TRANSDERM Q7D for 30 Days Prov:TAINA BARBER 06/26/17 Reported Medications Nifedipine* (Nifedipine ER*) 60 Mg Tablet.sa, 60 MG PO DAILY, TAB.SA 06/26/17 Risperidone* (Risperidone*) 1 Mg Tablet, 1 MG PO BID, TAB 06/26/17 Famotidine* (Famotidine*) 20 Mg Tablet, 20 MG PO DAILY, #30 TAB 06/26/17 Discontinued Reported Medications Carvedilol* (Carvedilol*) 6.25 Mg Tablet, 6.25 MG PO BID, #60 TAB 06/26/17 Benazepril Hcl* (Benazepril Hcl*) 20 Mg Tablet, 20 MG PO BID, #60 TAB 06/26/17 Divalproex Sodium* (Divalproex Sodium*) 250 Mg Tablet.dr, 250 MG PO BID WITH MEALS, #90 TAB 06/26/17 Allergies Allergies: Coded Allergies: Unknown: Unable to obtain (Unverified , 06/25/17) PMhx/Soc History of Surgery: Yes (craniectomy) Hx Neurological Disorder: Yes (CVA) Hx Respiratory Disorders: No Hx Cardiac Disorders: Yes (HTN) Hx Psychiatric Problems: Yes Hx Substance Use: No (UNABLE TO OBTAIN) Smoking Status: Unknown if ever smoked Physical Exam Vitals Vital Signs Date Time Temp Pulse Resp B/P Pulse Ox O2 Delivery O2 Flow Rate FiO2 07/01/17 18:36 98.0 102 20 157/98 100 Room Air 07/01/17 17:19 100 20 165/98 99 Room Air 07/01/17 15:07 Nasal Cannula 2 07/01/17 14:12 98.5 89 18 148/98 99 Physical Exam Const: [] No apparent distress, and comfortably in bed. Head: Atraumatic Eyes: Normal Conjunctiva, EOMI, PERRLA ENT: Normal External Ears, Nose and Mouth. Mucous membranes of mouth moist, tympanic membranes within normal limits bilaterally Neck: Full range of motion..~No JVD and no apparent pain on flexion of the neck Resp: Clear to auscultation bilaterally Cardio: Regular rate and rhythm, no murmurs Abd: Soft, non tender, non distended. Normal bowel sounds Skin: No petechiae or rashes Back: No midline or flank tenderness Ext: No cyanosis, or edema Neur: Awake and alert, can answer yes or no to some questions, apparently uses all 4 extremities was said to have a left-sided deficit. Psych: Normal Mood and Affect Result Diagram: 07/01/17 1450 07/01/17 1450 Results 24 hrs Laboratory Tests Test 07/01/17 14:11 07/01/17 14:50 07/01/17 15:15 Bedside Glucose 106mg/dL White Blood Count 8.910^3/ul Red Blood Count 3.2410^6/ul Hemoglobin 10.2g/dl Hematocrit 31.9% Mean Corpuscular Volume 98.5fl Mean Corpuscular Hemoglobin 31.5pg Mean Corpuscular Hemoglobin Concent 32.0g/dl Red Cell Distribution Width 12.9% Platelet Count 89308^3/UL Mean Platelet Volume 9.8fl Neutrophils % 62.5% Lymphocytes % 21.7% Monocytes % 8.5% Eosinophils % 5.2% Basophils % 0.4% Nucleated Red Blood Cells % 0.0/100WBC Neutrophils # 5.610^3/ul Lymphocytes # 1.910^3/ul Monocytes # 0.810^3/ul Eosinophils # 0.510^3/ul Basophils # 0.010^3/ul Nucleated Red Blood Cells # 0.010^3/ul Sodium Level 146mmol/L Potassium Level 4.0mmol/L Chloride Level 107mmol/L Carbon Dioxide Level 29mmol/L Anion Gap 14 Blood Urea Nitrogen 44mg/dl Creatinine 2.37mg/dl Glucose Level 95mg/dl Lactic Acid Level 1.2mmol/L Calcium Level 8.7mg/dl Total Bilirubin 0.1mg/dl Direct Bilirubin 0.00mg/dl Indirect Bilirubin 0.1mg/dl Aspartate Amino Transf (AST/SGOT) 35IU/L Alanine Aminotransferase (ALT/SGPT) 38IU/L Alkaline Phosphatase 58IU/L Troponin I 0.062ng/ml Total Protein 6.5g/dl Albumin 3.4g/dl Globulin 3.10g/dl Albumin/Globulin Ratio 1.09 Free Thyroxine Index 4.98ug/ml Thyroxine (T4) 19.9ug/dl Triiodothyronine (T3) Uptake 25.0% Salicylates Level < 1.0mg/dl Acetaminophen Level < 10.0ug/ml Ethyl Alcohol Level < 10.0mg/dl Urine Color YELLOW Urine Clarity SLIGHTLY CLOUDY Urine pH 5.0 Urine Specific Bailey 1.013 Urine Ketones NEGATIVEmg/dL Urine Nitrite NEGATIVEmg/dL Urine Bilirubin NEGATIVEmg/dL Urine Urobilinogen NEGATIVEmg/dL Urine Leukocyte Esterase TRACELeu/ul Urine Microscopic RBC 3/HPF Urine Microscopic WBC 1/HPF Urine Squamous Epithelial Cells FEW/HPF Urine Mucus FEW/HPF Urine Hemoglobin NEGATIVEmg/dL Urine Glucose NEGATIVEmg/dL Urine Total Protein 2+mg/dl Urine Opiates Screen Negative Urine Barbiturates Negative Urine Amphetamines Screen Negative Urine Benzodiazepines Screen Negative Urine Cocaine Screen Negative Urine Cannabinoids Negative Current Medications Medications (Trade) Dose Ordered Sig/Bruno Route PRN Reason Start Time Stop Time Status Last Admin Dose Admin Sodium Chloride 1,000 ml @ 1,000 mls/hr Q1H STAT IV 07/01/17 14:27 07/01/17 15:26 DC 07/01/17 15:00 Levetiracetam (Keppra 1,000mg/ 100ml (Pmx)) 100 ml @ 400 mls/hr ONCE ONCE IVPB 07/01/17 17:00 07/01/17 17:14 DC 07/01/17 17:16 Procedures/MDM Patient with full workup for altered mental status on top of chronic altered mental status is negative. No signs of cardiac ischemia, no signs of any infection. Vital signs completely stable. CT head performed and is unchanged from recent head CT. No acute process discovered on workup for increasing altered mental status. This may be a progression or extension of the patient's normal altered mental status secondary to prior strokes. He does have trace leukocyte esterase in his urine but no significant amount of cells. Urine is sent for culture. Otherwise the patient appears well is stable. Going to discharge him with primary care follow-up with the neck couple of days as well as return precautions the ER for any fevers or significant changes that are concerning to the staff. EKG interpretation: Sinus origin of rhythm without ST elevations or depressions concerning for acute ischemia manager of revenue interpretation: Normal sinus rhythm without arrhythmia Chest x-ray interpretation: I see no acute process, no vitamin Leiva, no pneumothorax, no infiltrates, no pulmonary edema, no fractures. Brain CT interpretation: I see no acute process. I see no hemorrhage, no mass- effect, no midline shift, no skull fractures. Old infarcts are evident. Departure Diagnosis: Primary Impression: Altered mental status Additional Impressions: Chronic renal failure Normocytic anemia Condition: Stable Patient Instructions: Altered Loc Additional Instructions: Call your primary care doctor TOMORROW for an appointment during the next 2-3 days.See the doctor sooner or return here if your condition worsens before your appointment time. KAITY NUÑEZ DO Jul 01, 2017 21:10
== END 2017-07-01 18:36 | disposition home or self-care (01) ==
LOC: E/R 13:59
DX: R41.82 Altered mental status, unspecified (principal); N18.9 Chronic kidney disease, unspecified; D64.9 Anemia, unspecified; I12.9 Hypertensive chronic kidney disease with stage 1 through stage 4 chronic kidney disease, or unspecified chronic kidney disease
CPT/HCPCS: 36415; 70450; 71010; 80053; 80306; 80307; 81001; 82962; 83605; 84436; 84479; 84484; 85025; 87086; 93005; 96374; J1953; J7030; P9612; Z7502

== ENCOUNTER 2017-08-20 19:22 | Inpatient (IN) | END 2017-08-28 17:42 | DRG 280 ==